=== PATIENT | female | born 1990 | race Caucasian/White ===

== ENCOUNTER 2022-03-10 16:42 | Emergency (ER) | payer MEDICAID | END 2022-03-11 00:32 | disposition left against medical advice (07) | LOC: ER 16:45 | DX: R56.9 Unspecified convulsions (principal); Z53.21 Procedure and treatment not carried out due to patient leaving prior to being seen by health care provider ==

== ENCOUNTER 2022-04-11 19:09 | Emergency (ER) | payer MEDICAID ==
[~2022-04-11] VITALS: Ht 172.7 cm; Wt 73.6 kg
--- NOTE | 2022-04-11 19:30 | NUR ---
PT SENT TO BATHROOM FOR URINE SPECIMAN FOR MENTAL hEALTH EVALUATION
[2022-04-11 20:05] LABS: URINE HCG NEGATIVE (NEG)
[2022-04-11 20:06] LABS: BASOPHILS # (AUTO) 0.1 X10'3 (0-0.2); HEMOGLOBIN 11.4 g/dl (12.0-16.0); LYMPHOCYTES # (AUTO) 1.7 X10'3 (1.1-4.8); MEAN PLATELET VOLUME 6.5 FL (7.4-10.4); RED CELL DISTRIBUTION WIDTH 13.3 % (11.5-14.5)
[2022-04-11 20:08] LABS: BASOPHILS % (AUTO) 0.3 % (0-1); EOSINOPHILS % (AUTO) 0.2 % (0-6); HEMATOCRIT 34.7 % (35.0-45.0); LYMPHOCYTES % (AUTO) 11.4 % (21-51); MEAN CORPUSCULAR HEMOGLOBIN 30.2 PG (27.0-31.0); MEAN CORPUSCULAR HGB CONC 32.9 g/dL (33.0-36.5); MONOCYTES % (AUTO) 7.1 % (2-12); NEUTROPHILS # (AUTO) 11.9 X10'3 (1.8-7.7); PLATELET COUNT 883 X10'3 (140-440); RED BLOOD COUNT 3.77 X10'6 (4.20-5.60); WHITE BLOOD COUNT 14.7 X10'3 (4.5-11.0)
[2022-04-11 20:21] LABS: ALANINE AMINOTRANSFERASE 217 U/L (12-78); ALBUMIN 2.8 G/DL (3.4-5.0); ALBUMIN/GLOBULIN RATIO 0.8 (1.1-1.5); ALKALINE PHOSPHATASE 130 IU/L (46-116); ANION GAP 8 (8-16); ASPARTATE AMINO TRANSFERASE 76 U/L (10-37); BILIRUBIN,TOTAL 0.4 MG/DL (0.1-1.0); BLOOD UREA NITROGEN 10 MG/DL (7-18); CALCIUM 7.6 MG/DL (8.5-10.1); CHLORIDE 103 MMOL/L (99-107); CREATININE 0.91 MG/DL (0.40-0.90); ETHANOL < 0.010 GM/DL (0.0-0.010); GLUCOSE 117 MG/DL (70-104); SODIUM 139 MMOL/L (135-145); TOTAL CARBON DIOXIDE 28.1 MMOL/L (24-32); TOTAL PROTEIN 6.3 G/DL (6.4-8.2); eGFR 72 ML/MIN
[2022-04-11 20:22] LABS: URINE AMPHETAMINE SCREEN NEGATIVE (Neg); URINE BARBITUATE SCREEN NEGATIVE (Neg); URINE BENZODIAZEPINES SCREEN NEGATIVE (Neg); URINE CANNABINOID SCREEN NEGATIVE (Neg); URINE COCAINE SCREEN NEGATIVE (Neg); URINE METHADONE SCREEN NEGATIVE (Neg); URINE OPIATE SCREEN NEGATIVE (Neg); URINE PHENCYCLIDINE SCREEN NEGATIVE (Neg)
[2022-04-11] MEDS ORDERED: POTA-192 PO (22:03)
[2022-04-11] MEDS ORDERED: DUTA0.5C40 PO (22:03)
--- NOTE | 2022-04-11 22:14 | NUR ---
PT PLACED IN ROOM 22. PT HAS FLAT EFFECT AND WILL NOT ANSWER ANY QUESTIONS DURING NURSE INTERVIEW.
[2022-04-11] MEDS ORDERED: potassium Cl 20 mEq SR tablet PO ONE (22:20)
--- NOTE | 2022-04-12 06:38 | NUR ---
Patient sleeping on right side. No distress observed. Continue to monitor.
[2022-04-12] MEDS ORDERED: amoxicillin 250mg capsule PO ONE (08:00)
[2022-04-12] MEDS: potassium chloride 10mEq ER tablet PO SCH ×2 (08:00→19:48)
[2022-04-12] MEDS: dutasteride 0.5 MG capsule PO SCH (08:00)
--- NOTE | 2022-04-12 08:11 | NUR ---
Breakfast tray set at bedside. Patient advised of tray. Patient did not respond. Continue to monitor.
[2022-04-12] MEDS: DOXYCYCLINE 100MG CAPSULE PO SCH ×3 (08:45→19:48)
--- NOTE | 2022-04-12 09:10 | NUR ---
Patient refuses to respond to RN. RN asked patient several times if she wanted her medication. Patient appears awake and eyes are closed. Continue to monitor.
--- NOTE | 2022-04-12 11:06 | NUR ---
Patient sleeping supine. Respirations equal and nonlabored. Continue to monitor.
--- NOTE | 2022-04-12 12:26 | NUR ---
Lunch tray at bedside. Patient advised but continues to sleep. Continue to monitor.
--- NOTE | 2022-04-12 14:03 | NUR ---
Patient continues to sleep. Continue to monitor.
--- NOTE | 2022-04-12 19:17 | NUR ---
The patient has been resting on his bed. He ate dinner. After dinner he was friendly and cooperative with participating in an evening assessment. He appears disheveled and wearing hospital gown and pants from a previous stay at [facility]. He is alert and oriented. He is hugging a stuffed animal. He denies pain and added, "I'm just really really tired" He is aware that he is on a 5150 and will need to be seen by [facility]. He stated that he no longer feels suicidal and that he would like to go home. This is his 2nd suicide gesture in as many days. Psychotic symptoms are denied. He was given clean clothes and hygiene items.
--- NOTE | 2022-04-12 20:42 | NUR ---
The patient appears to be sleeping
--- NOTE | 2022-04-12 22:04 | NUR ---
The patient appears to be sleeping
--- NOTE | 2022-04-13 00:26 | NUR ---
The patient appears to be sleeping
--- NOTE | 2022-04-13 01:56 | NUR ---
The patient appears to be sleeping
--- NOTE | 2022-04-13 04:06 | NUR ---
The patient appears to be sleeping
--- NOTE | 2022-04-13 05:21 | NUR ---
The patient appeared to have slept well during the night
[2022-04-13 05:53] VITALS: BP 124/85
[2022-04-13] MEDS: potassium chloride 10mEq ER tablet PO SCH (09:03)
[2022-04-13] MEDS: DOXYCYCLINE 100MG CAPSULE PO SCH (09:03)
--- NOTE | 2022-04-13 09:16 | NUR ---
Pharmacy called for missing med.
[2022-04-13] MEDS: dutasteride 0.5 MG capsule PO SCH (09:54)
[2022-04-13] MEDS ORDERED: DOXY100C76 PO (12:10)
[2022-04-13] MEDS ORDERED: AMOX500C2 PO (12:10)
== END 2022-04-13 14:16 ==
LOC: ER 19:09
DX: R45.851 Suicidal ideations (principal); Z20.822 Contact with and (suspected) exposure to COVID-19; J18.9 Pneumonia, unspecified organism; E87.6 Hypokalemia
CPT/HCPCS: 36415; 71045; 80053; 80305; 80320; 81025; 84132; 85025; 87811; 99285